=== PATIENT | female | born 1945 | race Caucasian/White ===

== ENCOUNTER → 2020-03-16 | Outpatient (CLI) | payer MEDICARE ==
[~2020-03-16] MED LIST: ALPR.25; CONEST.625; GABA100 PO
== END ==
LOC: LAB 11:05 → LAB SHORT 11:05
DX: Z01.812 Encounter for preprocedural laboratory examination (principal); Z20.822 Contact with and (suspected) exposure to COVID-19
CPT/HCPCS: U0003

== ENCOUNTER 2020-08-08 11:31 | Day surgery (SDC) | payer MEDICARE ==
[~2020-08-08] VITALS: Ht 175.3 cm; Wt 50.1 kg
[~2020-08-08 11:31] MED LIST changes: -GABA100 PO
[2020-08-08] MEDS ORDERED: GABA100 PO (12:00)
--- NOTE | 2020-08-08 12:12 | NUR ---
08/08/20 1212 Debbie Browne [address] USED FOR PROCEDURE BY DR BUSBY LIDOCAINE 1.5% 1:200,000 FROM EPIDURAL KIT INJECTED AT OPSITE BY DR BUSBY FOR PAIN CONTROL.
== END 2020-08-08 12:53 | disposition home or self-care (01) ==
LOC: ORSCSDS 11:31
PROVIDERS: Orthopaedic Surgery
PROC: 3E0R33Z Introduction of Anti-inflammatory into Spinal Canal, Percutaneous Approach (ICD-10-PCS; principal; 2020-08-08 12:15)
DX: M51.16 Intervertebral disc disorders with radiculopathy, lumbar region (principal); M54.5 Low back pain; Z79.899 Other long term (current) drug therapy
CPT/HCPCS: J1040

== ENCOUNTER 2024-03-09 09:25 | Day surgery (SDC) | payer MEDICARE ==
[~2024-03-09] VITALS: Ht 175.3 cm; Wt 51.6 kg
[~2024-03-09 09:25] MED LIST changes: +GABA100 PO; +Glycopyrrolate 0.2 MG/ML 1MLVIAL ONE; +Lactated Ringer's 1,000 ML IV ONE; +Lidocaine 2% 5 ML SDV ONE; +Lidocaine HCl/Pf 1% 5 ML VIAL ONE; +Ondansetron HCl 2 MG / ML 2ML Vial ONE; +ePHEDrine Sulfate 50 MG/ML 1ML Injection ONE; +propofoL 50 ML IV ONE
[2024-03-09] MEDS ORDERED: TRELEGY ELLIPT1 EACH (10:34)
[2024-03-09] MEDS ORDERED: Lactated Ringer's 1,000 ML IV ONE (11:04)
[2024-03-09 12:32] VITALS: BP 116/72
== END 2024-03-09 12:30 | disposition home or self-care (01) ==
LOC: ORSCSDS 09:25
PROVIDERS: Internal Medicine Gastroenterology
PROC: 0D758ZZ Dilation of Esophagus, Via Natural or Artificial Opening Endoscopic (ICD-10-PCS; principal; 2024-03-09 11:00)
PROC: 0DB58ZX Excision of Esophagus, Via Natural or Artificial Opening Endoscopic, Diagnostic (ICD-10-PCS; principal; 2024-03-09 11:00)
DX: R13.10 Dysphagia, unspecified (principal); K22.2 Esophageal obstruction; K44.9 Diaphragmatic hernia without obstruction or gangrene; R10.13 Epigastric pain; J44.9 Chronic obstructive pulmonary disease, unspecified; F41.9 Anxiety disorder, unspecified; F32.A Depression, unspecified; Z79.899 Other long term (current) drug therapy; F17.210 Nicotine dependence, cigarettes, uncomplicated
CPT/HCPCS: 88305; 88312; C1726; J2003; J2405; J2704; J7120